=== PATIENT | male | born 1955 | race Caucasian/White ===

== ENCOUNTER 2020-10-08 23:44 | Emergency (ER) | payer SELFPAY ==
[~2020-10-08] VITALS: Ht 193 cm; Wt 95.5 kg
[2020-10-09] MEDS ORDERED: LORazepam 2 MG TAB PO ONE (00:05)
[2020-10-09] MEDS ORDERED: OLANZapine ORAL DISINTEGRATING TAB 5MG PO ONE (00:05)
[2020-10-09 00:20] LABS: HEMATOCRIT 39.8 % (42.0-52.0); MEAN CORPUSCULAR HEMOGLOBIN 32.2 pg (27.0-33.0); MEAN CORPUSCULAR HGB CONC 35.2 g/dl (32.0-36.5); MEAN CORPUSCULAR VOLUME 91.5 fl (80.0-96.0); PLATELET COUNT, AUTOMATED 268 10^3/uL (150-450); RED BLOOD COUNT 4.35 10^6/uL (4.30-6.10); WHITE BLOOD COUNT 8.2 10^3/uL (4.0-10.0)
[2020-10-09 00:57] LABS: ACETAMINOPHEN LEVEL < 2.0 UG/ML (10.0-30.0); ALBUMIN 3.6 GM/DL (3.2-5.2); ALT/SGPT 31 U/L (12-78); BILIRUBIN,DIRECT 0.1 MG/DL (0.0-0.2); BILIRUBIN,TOTAL 0.4 MG/DL (0.2-1.0); BLOOD UREA NITROGEN 8 MG/DL (7-18); CALCIUM LEVEL 8.6 MG/DL (8.8-10.2); CARBON DIOXIDE LEVEL 23 MEQ/L (21-32); CHLORIDE LEVEL 105 MEQ/L (98-107); CREATININE FOR GFR 0.63 MG/DL (0.70-1.30); ETHYL ALCOHOL (ETHANOL) < 0.003 % (0.000-0.010); GLOMERULAR FILTRATION RATE > 60.0 (>49); GLUCOSE, FASTING 104 MG/DL (70-100); POTASSIUM SERUM 4.1 MEQ/L (3.5-5.1); SALICYLATE LEVEL < 1.7 MG/DL (5.0-30.0); SODIUM LEVEL 134 MEQ/L (136-145); TOTAL PROTEIN 7.1 GM/DL (6.4-8.2)
[2020-10-09 06:20] LABS: AMPHETAMINES LEVEL URINE NEGATIVE (NEGATIVE); BARBITURATES URINE NEGATIVE (NEGATIVE); BENZODIAZEPINES URINE NEGATIVE (NEGATIVE); CANNABINOIDS URINE NEGATIVE (NEGATIVE); COCAINE METABOLITE URINE NEGATIVE (NEGATIVE); METHADONE URINE NEGATIVE (NEGATIVE); OPIATES URINE NEGATIVE (NEGATIVE); PHENCYCLIDINE URINE NEGATIVE (NEGATIVE)
[2020-10-09 09:54] LABS: RSV AMPLIFICATION NEGATIVE (NEGATIVE)
[2020-10-09] MEDS ORDERED: HOME MED LIST COMPLETE! XX SCH (19:35)
--- NOTE | 2020-10-09 21:28 | ECGEPIP ---
[facility] - ED Test Date: 2020-10-09 Pat Name: PARVIZ OMRALES Department: Room: - Gender: Male Face Man: CAROLEE : 1955 Requested By: Danica Anton Order Number: [id number] Reading MD: Danica Anton Measurements Intervals [place] Rate: 97 P: 67 MD: 170 QRS: 88 QRSD: 88 T: 39 QT: 364 QTc: 462 Interpretive Statements Normal sinus rhythm No prior Electronically Signed on 10-09-2020 21:28:06 EDT by Danica Anton
[2020-10-10 06:26] VITALS: BP 108/68
== END 2020-10-10 10:03 ==
LOC: M ED 23:44
DX: F29 Unspecified psychosis not due to a substance or known physiological condition (principal)